=== PATIENT | female | born 1950 | race Caucasian/White ===

== ENCOUNTER 2023-03-16 20:59 | Outpatient (CLI) | payer OTHER, SELFPAY ==
--- NOTE | ~2023-03-16 | CT_ITS ---
Non-contrast Head CT History: Head injury Technique: Axial non-contrast imaging of the brain was performed. Dose reduction technique was used on this scan by utilizing automated exposure control and iterative reconstruction technique. The dose -length product (DLP) was 605.33 mGy-cm. Findings: There is no evidence of intracranial hemorrhage, mass lesion, or acute infarct. Brain par enchyma appears normal. The ventricles and subarachnoid spaces are normal in size. The calvarium ap pears normal. The visualized paranasal sinuses and mastoid air cells are clear. There is left perior bital soft tissue swelling. Impression: No intracranial abnormality seen. Left periorbital soft tissue swelling. Reviewed, dictated and finalized at [facility]. Impression: No intracranial abnormality seen. Left periorbital soft tissue swelling.
--- NOTE | ~2023-03-16 | CT_ITS ---
CT Facial Bones Clinical Indication: Head injury Technique: Contiguous axial scans were obtained through the facial bones followed by coronal and sagi ttal reconstructions. Dose reduction technique was used on this scan by utilizing automated exposure control and iterative reconstruction technique. The dose-length product (DLP) was 366.02 mGy-cm. Findings: No fractures are identified. The visualized paranasal sinuses are clear. Intraorbital soft tissues appear normal. There is prominent left periorbital soft tissue swelling. Impression: No fracture identified. Prominent left periorbital soft tissue swelling. Reviewed, dictated and finalized at location . Impression: No fracture identified. Prominent left periorbital soft tissue swelling.
== END 2023-03-16 21:00 | disposition home or self-care (01) ==
DX: S09.90XA Unspecified injury of head, initial encounter (principal); M79.89 Other specified soft tissue disorders
CPT/HCPCS: 70450; 70486